=== PATIENT | female | born 1945 | race African-American/Black ===

== ENCOUNTER 2021-01-03 08:24 | Observation (INO) ==
[2021-01-03 11:14] LABS: Bacteria,Urine Many /HPF (Few); Basophils % 0.3 % (0.0-0.8); Bilirubin,Urine Negative (Negative); Blood, Urine Small mg/dL (Negative); Eosinophils # 0.1 10*3/uL (0.0-0.87); Eosinophils % 0.9 % (0.00-10.9); Glucose,Urine (UA) Negative (Negative); Hematocrit 29.3 VOL% (35.7-47.0); Hemoglobin 9.1 GM/DL (12.0-16.0); Hyaline Casts,Urine 6 /LPF (0-3); Immature Granulocytes % 1.8 %; Immature Granulocytes Absolute 0.17 #; Ketones,Urine Negative (Negative); Lymphocytes # 0.6 10*3/uL (1.4-4.0); Lymphocytes % 6.8 % (21.3-54.2); Mean Corpuscular HGB Conc 31.1 GM/DL (32-36); Mean Corpuscular Volume 83.5 FL (87-102); Mean Platelet Volume 12.3 FL (9.6-12.0); Mucus,Urine Few /LPF (Occasional); Neutrophils % 82.2 % (38.7-73.9); Nitrite,Urine Negative (Negative); Platelet Count 167 T/CUMM (130-400); Protein,Urine Negative; RBC,Urine 4 /HPF (0-4); Red Blood Count 3.51 MC/CUMM (3.8-5.5); Red Cell Distribution Width 15.5 % (9.3-17.3); Squamous Epithelial Cell,Urine Few /HPF (0-10); Urine Appearance Slightly Hazy (Clear); Urine Color Yellow (Yellow); Urine Specific Gravity 1.014 (1.001-1.035); Urine Urobilinogen < 2.0 EU/DL (0.2-1.0); WBC,Urine 6 /HPF (0-6); White Blood Count 9.3 T/CUMM (4-12)
[2021-01-03] MEDS ORDERED: ONDANSETRON 4 MG/2 ML VIAL IV ONE (11:17)
[2021-01-03 11:42] LABS: Albumin 2.1 G/DL (3.4-5.0); Bilirubin,Total 0.6 MG/DL (0.2-1.0); Calcium 8.9 MG/DL (8.5-10.1); Osmolality,Calculated 284.7 MOS/KG (273-304); Total Protein 7.3 G/DL (5.0-7.5)
[2021-01-03] MEDS ORDERED: SODIUM CHLORIDE 0.9% 500 ML IV STA (12:17)
[2021-01-03] MEDS ORDERED: DOCUSATE SODIUM 100 MG CAPSULE PO PRN (12:31)
[2021-01-03] MEDS ORDERED: ONDANSETRON 4 MG/2 ML VIAL IV PRN (12:31)
[2021-01-03] MEDS ORDERED: GLUCAGON 1 MG VIAL IM PRN (12:31)
[2021-01-03] MEDS ORDERED: DEXTROSE 50% 25 GM/50 ML VIAL IV PRN (12:31)
[2021-01-03] MEDS: SODIUM CHLORIDE 0.9% 1,000 ML IV SCH (16:49)
[2021-01-03] MEDS: ENOXAPARIN 30 MG/0.3 ML SYRINGE SUBCUT SCH (17:50)
[2021-01-04 06:05] LABS: Basophils % 0.3 % (0.0-0.8); Eosinophils # 0.1 10*3/uL (0.0-0.87); Hematocrit 22.5 VOL% (35.7-47.0); Hemoglobin 7.3 GM/DL (12.0-16.0); Immature Granulocytes Absolute 0.12 #; Lymphocytes # 0.6 10*3/uL (1.4-4.0); Lymphocytes % 10.5 % (21.3-54.2); Mean Corpuscular HGB Conc 32.4 GM/DL (32-36); Mean Corpuscular Volume 83.3 FL (87-102); Monocytes % 7.8 % (1.7-12.7); Neutrophils % 78.4 % (38.7-73.9); Platelet Count 167 T/CUMM (130-400); Red Cell Distribution Width 15.4 % (9.3-17.3); White Blood Count 6.1 T/CUMM (4-12)
[2021-01-04 06:29] LABS: Albumin 1.6 G/DL (3.4-5.0); Bilirubin,Total 1.7 MG/DL (0.2-1.0); Osmolality,Calculated 285.3 MOS/KG (273-304); Potassium 3.4 MMOL/L (3.5-5.1)
[2021-01-04] MEDS ORDERED: POTASSIUM CHLORIDE 20 MEQ TABLET PO ONE (09:00)
[2021-01-04] MEDS: SODIUM CHLORIDE 0.9% 1,000 ML IV SCH (10:27)
[2021-01-04] MEDS: CIPROFLOXACIN INJ 400 MG in PREMIX 1 EACH IV SCH (13:16)
[2021-01-04] MEDS: ENOXAPARIN 30 MG/0.3 ML SYRINGE SUBCUT SCH (13:16)
[2021-01-04] MEDS ORDERED: MONTELUKAST 10 MG TABLET PO SCH (21:00)
[2021-01-04] MEDS ORDERED: SIMVASTATIN 10 MG TABLET PO SCH (21:00)
[2021-01-04] MEDS ORDERED: LATANOPROST 0.005% OPH SOLN 2.5 ML BOTTLE BOTH EYES SCH (21:00)
[2021-01-04] MEDS: FERROUS SULFATE 325 MG TABLET PO SCH (21:19)
[2021-01-04] MEDS: carvediloL 6.25 MG TABLET PO SCH (21:20)
[2021-01-04] MEDS: GABAPENTIN 100 MG CAPSULE PO SCH (21:20)
[2021-01-05] MEDS: CIPROFLOXACIN INJ 400 MG in PREMIX 1 EACH IV SCH (01:24)
[2021-01-05] MEDS: SODIUM CHLORIDE 0.9% 1,000 ML IV SCH (05:23)
[2021-01-05 05:44] LABS: Basophils % 0.4 % (0.0-0.8); Eosinophils # 0.1 10*3/uL (0.0-0.87); Eosinophils % 1.4 % (0.00-10.9); Hematocrit 24.4 VOL% (35.7-47.0); Hemoglobin 7.4 GM/DL (12.0-16.0); Immature Granulocytes % 3.9 %; Immature Granulocytes Absolute 0.22 #; Lymphocytes # 0.7 10*3/uL (1.4-4.0); Mean Corpuscular HGB Conc 30.3 GM/DL (32-36); Mean Corpuscular Volume 85.9 FL (87-102); Mean Platelet Volume 11.1 FL (9.6-12.0); Monocytes % 10.7 % (1.7-12.7); Neutrophils % 71.6 % (38.7-73.9); Platelet Count 190 T/CUMM (130-400); Red Blood Count 2.84 MC/CUMM (3.8-5.5); Red Cell Distribution Width 15.5 % (9.3-17.3); White Blood Count 5.7 T/CUMM (4-12)
[2021-01-05 06:08] LABS: Calcium 8.1 MG/DL (8.5-10.1); Osmolality,Calculated 282.3 MOS/KG (273-304); Potassium 3.5 MMOL/L (3.5-5.1)
[2021-01-05 08:11] VITALS: BP 137/67
[2021-01-05] MEDS: GABAPENTIN 100 MG CAPSULE PO SCH (09:00)
[2021-01-05] MEDS: carvediloL 6.25 MG TABLET PO SCH (09:00)
[2021-01-05] MEDS ORDERED: PARoxetine 10 MG TABLET PO SCH (09:00)
[2021-01-05] MEDS: FERROUS SULFATE 325 MG TABLET PO SCH (09:00)
[2021-01-09] MEDS ORDERED: ERGOCALCIFEROL 50,000 UNIT CAPSULE PO SCH (09:00)
== END 2021-01-05 10:44 | disposition home or self-care (01) ==
LOC: N.ED 08:24 → N.EDINP 08:24 → N.5E 16:38
PROVIDERS: ADMIT Internal Medicine; ATTEND Internal Medicine